=== PATIENT | female | born 1980 | race African-American/Black ===

== ENCOUNTER → 2017-10-08 | Outpatient (CLI) | payer BC ==
--- NOTE | 2017-10-08 11:36 | RAD ---
Right foot ultrasound, 10/08/2017: History: Dorsal foot lump The area of clinical concern over the dorsum of the right foot was carefully scanned. There is thickening of the subcutaneous soft tissues extending over an area measuring approximately 3 cm in width. This process appears relatively isoechoic compared to the subcutaneous fat medially and laterally. No discrete fluid collection is seen. A lipoma is suspected. If clinical concern persists, MR scanning is suggested for further evaluation.
== END | disposition home or self-care (01) ==
LOC: US 10:27
PROVIDERS: ATTEND Podiatrist Foot & Ankle Surgery
DX: R22.41 Localized swelling, mass and lump, right lower limb (principal)
CPT/HCPCS: 76882